=== PATIENT | male | born 2000 | race African-American/Black ===

== ENCOUNTER 2018-12-25 05:17 | Emergency (ER) | payer SELFPAY ==
[2018-12-25] MEDS ORDERED: predniSONE 20 MG TAB ONE (05:40)
[2018-12-25] MEDS ORDERED: Albuterol Sulfate 2.5 mg/3 ml Neb ONE (05:42)
== END 2018-12-25 06:45 | disposition home or self-care (01) ==
LOC: ERS 05:17
DX: J45.901 Unspecified asthma with (acute) exacerbation (principal)
CPT/HCPCS: 94640; J7512; J7611; J7620

== ENCOUNTER 2022-01-18 23:10 | Emergency (ER) | payer SELFPAY | END 2022-01-19 01:13 | disposition home or self-care (01) | LOC: ERS 23:10 | DX: M25.571 Pain in right ankle and joints of right foot (principal) ==

== ENCOUNTER 2022-05-19 22:34 | Emergency (ER) | payer SELFPAY | END 2022-05-19 23:15 | disposition home or self-care (01) | LOC: ERS 22:34 | DX: Z20.2 Contact with and (suspected) exposure to infections with a predominantly sexual mode of transmission (principal); F17.290 Nicotine dependence, other tobacco product, uncomplicated | CPT/HCPCS: 99281 ==

== ENCOUNTER 2022-05-24 00:29 | Emergency (ER) | payer SELFPAY ==
[2022-05-24 00:59] LABS: #Basophils 0.1 thou/uL (0.0-0.2); #Eosinphils 0.3 thou/uL (0.0-0.7); #Monocytes 0.7 thou/uL (0.11-0.59); #Neutrophils 3.4 thou/uL (1.40-6.50); %Basophils 0.8 % (0.0-1.0); %Eosinophils 4.5 % (0.0-10.0); %Lymphocytes 40.8 % (21.0-51.0); %Monocytes 8.7 % (0.0-10.0); %Neutrophils 45.2 % (42.0-75.0); Mean Corpuscular HGB CONC 35.7 g/dL (32.0-36.0); Mean Corpuscular Hemoglobin 29.7 pg (27.0-31.0); Mean Corpuscular Volume 83.2 fL (78.0-98.0); Mean Platelet Volume 7.3 fL (7.4-10.4); Platelet Count 243 thou/uL (130-400); RBC Distribution Width 11.7 % (11.5-14.5); White Blood Cell (WBC) Count 7.5 thou/uL (4.8-10.8)
[2022-05-24 01:20] LABS: ALT (SGPT) 19 U/L (8-55); AST (SGOT) 27 U/L (5-34); Albumin 4.2 g/dL (3.5-5.0); Alkaline Phosphatase 74 U/L (40-110); Anion Gap 14 mmol/L (10-20); BUN (Urea Nitrogen) 16 mg/dL (8.9-20.6); Bilirubin, Total 0.9 mg/dL (0.2-1.2); CK (CPK) 790 U/L (30-200); Calc. Creatinine Clearance 0 mL/min (70-130); Calcium 9.3 mg/dL (7.8-10.44); Carbon Dioxide 24 mmol/L (22-29); Chloride 105 mmol/L (98-107); Estimated GFR 74; Globulin 2.5 g/dL (2.4-3.5); Glucose 88 mg/dL (70-105); Magnesium 1.9 mg/dL (1.6-2.6); Potassium 3.8 mmol/L (3.5-5.1); Protein, Total 6.7 g/dL (6.0-8.3); Sodium 139 mmol/L (136-145)
== END 2022-05-24 03:31 | disposition home or self-care (01) ==
LOC: ERS 00:29
DX: R74.8 Abnormal levels of other serum enzymes (principal); F17.290 Nicotine dependence, other tobacco product, uncomplicated
CPT/HCPCS: 36415; 70450; 80053; 82550; 83735; 85025; 93005

== ENCOUNTER 2023-04-05 20:15 | Emergency (ER) | payer SELFPAY ==
[2023-04-05] MEDS ORDERED: Acetaminophen 500 MG TAB ONE (20:42)
[2023-04-05] MEDS ORDERED: Ibuprofen 200 MG TAB ONE (20:42)
== END 2023-04-05 20:51 | disposition home or self-care (01) ==
LOC: ERS 20:15
DX: R51.9 Headache, unspecified (principal); F17.290 Nicotine dependence, other tobacco product, uncomplicated
CPT/HCPCS: 36416; 99283